=== PATIENT | female | born 2000 | race Two or more races ===

== ENCOUNTER 2024-01-21 09:23 | Observation (INO) | payer SELFPAY ==
[~2024-01-21] VITALS: Ht 154.9 cm; Wt 60.0 kg
[2024-01-21 09:23] VITALS: BP 113/73; PULSE 103; RESP 16; O2SAT 98
[2024-01-21 11:20] LABS: Urine Bacteria FEW /hpf (None Seen); Urine Blood Negative /uL (Negative); Urine Clarity Turbid (Clear); Urine Color Colorless (Yellow); Urine Mucus FEW (None Seen); Urine Protein, UAD Negative (Negative); Urine Specific Gravity 1.019 (1.001-1.035); Urine Urobilinogen Normal (Negative); Urine WBC 127 /hpf (0 - 5); Urine pH 5.5 (5.0-9.0)
[2024-01-21] MEDS ORDERED: PREN-96 PO (11:59)
[2024-01-21] MEDS: ceFAZolin 2 GM/D5W50ml 50 ML IV ONE (12:00)
[2024-01-21] MEDS: LACTATED RINGER'S 1,000 ML IV ONE (12:01)
[2024-01-21] MEDS ORDERED: NITR-87 PO (12:23)
== END 2024-01-21 12:52 | disposition home or self-care (01) ==
LOC: ER 09:23 → UNDOADMOB 10:00 → LDRP 10:00 → UNDODISOB 12:52
PROVIDERS: ADMIT Obstetrics & Gynecology; ATTEND Obstetrics & Gynecology
DX: O23.42 Unspecified infection of urinary tract in pregnancy, second trimester (principal); O99.891 Other specified diseases and conditions complicating pregnancy; M54.50 Low back pain, unspecified; Z3A.21 21 weeks gestation of pregnancy
CPT/HCPCS: 59025; 76815; 81001; 81002; 87086; 94760; 94762; 96361; 96365; G0378; J0690; 96360

== ENCOUNTER 2024-05-28 22:20 | Inpatient (IN) | payer MEDICAID, OTHER ==
[~2024-05-28] VITALS: Ht 154.9 cm; Wt 74.8 kg
[~2024-05-28 22:20] MED LIST: NITR-87 PO; PREN-96 PO
[2024-05-29 00:03] LABS: Fern Testing Negative
[2024-05-29] MEDS ORDERED: NALBUPHINE HCL 10 MG/1ml INJECTION IV PRN (00:45)
[2024-05-29] MEDS ORDERED: LIDOCAINE 2%HCL (LOCAL ANESTH.) INJ 20ML MDV IJ PRN (00:45)
[2024-05-29] MEDS: PHISODERM TOP SOLN 240ML BTL TOP PRN (01:31)
[2024-05-29] MEDS: WITCH HAZEL-GLYCERIN PAD TOP PRN (01:31)
[2024-05-29] MEDS: DERMOPLAST 60ML BOTTLE TOP PRN (01:31)
[2024-05-29] MEDS: LACTATED RINGER'S 1,000 ML IV SCH (01:32)
[2024-05-29 01:42] LABS: Basophils # (auto) 0.1 10 ^3/uL (0-0.2); Basophils % (auto) 0.7 % (0.0-2.0); Eosinophils # (auto) 0.1 10 ^3/uL (0-0.8); Eosinophils % (auto) 0.7 % (0.0-7.0); Hematocrit 39.7 % (36.0-46.0); Hemoglobin 13.3 g/dL (12.2-16.2); Lymphocytes # (auto) 4.1 10 ^3/uL (0.4-5.4); Lymphocytes % (auto) 26.8 % (10.0-50.0); Mean Corpuscular Hemoglobin 28.6 pg (28.0-32.0); Mean Corpuscular Hgb Conc. 33.5 g/dL (32.0-36.0); Mean Corpuscular Volume 85.2 fL (80.0-100.0); Monocytes # (auto) 0.8 10 ^3/uL (0-1.3); Monocytes % (auto) 5.5 % (0.0-12.0); Neutrophils # (auto) 10.1 10 ^3/uL (1.6-8.6); Neutrophils % (auto) 66.3 % (37.0-80.0); Nucleated Red Blood Cells % 0.1 %; Platelet Count (auto) 268 10^3/uL (140-450); Red Blood Cells 4.66 10^6/uL (4.0-5.20); Red Cell Distribution Width 13.2 % (11.8-14.3); White Blood Cell 15.2 10^3/uL (4.4-10.8)
[2024-05-29 01:59] LABS: INR 0.88 (0.9-1.15); Partial Thromboplastin Time 24.7 SEC (24.5-34.5); Prothrombin Time 9.4 sec (9.3-11.8)
[2024-05-29 02:03] LABS: Albumin 3.9 g/dL (3.2-4.8); Anion Gap 11 (5-15); BUN/Creatinine Ratio 13.2 (10.0-20.0); Blood Urea Nitrogen 10 mg/dL (9-23); Calcium 9.1 mg/dL (8.7-10.4); Carbon Dioxide 21 mmol/L (20-31); Chloride 105 mmol/L (98-107); Potassium 3.9 mmol/L (3.5-5.1); Sodium 137 mmol/L (136-145); Total Protein 6.8 g/dL (5.7-8.2)
[2024-05-29 02:04] LABS: Alanine Aminotransferase < 9 U/L (7-40); Alkaline Phosphatase 330 U/L (46-116); Bilirubin, Total 0.3 mg/dL (0.2-1.0); Glucose 73 mg/dL (74-106)
[2024-05-29 02:24] LABS: Aspartate Aminotransferase 13 U/L (13-40)
[2024-05-29 02:56] LABS: Urine Bacteria None Seen /hpf (None Seen)
[2024-05-29 03:10] LABS: Urine Blood Negative /uL (Negative); Urine Clarity Clear (Clear); Urine Color Yellow (Yellow); Urine Protein, UAD TRACE (Negative); Urine Squamous Epithelial Cell FEW /hpf (<5); Urine Urobilinogen Normal (Negative); Urine WBC 1 /hpf (0 - 5)
[2024-05-29 03:23] LABS: Amphetamine Screen, Urine Neg (NEGATIVE); Barbiturate Scree,Urine Neg (NEGATIVE); Benzodiazephine Screen, Urine Neg (NEGATIVE); Cannabinoid Screen, Urine Neg (NEGATIVE); Cocaine Screen, Urine Neg (NEGATIVE); Opiate Scree,Urine Neg (NEGATIVE); Phencyclidine Screen, Urine Neg (NEGATIVE)
--- NOTE | 2024-05-29 05:56 | DVH ---
LIMITED OB ULTRASOUND > 14 WKS: HISTORY: NO RECORDS TECHNIQUE: Multiple real-time grayscale images of the gravid uterus with duplex Doppler color flow an d M-mode spectral analysis. TRANSDUCER: Transabdominal COMPARISON: None FINDINGS: IUP single live fetus at 36 weeks and 5 days based on composite averages of the BPD, head circumferen ce, abdominal circumference and femur length Estimated weight 2889 grams heart rate 152 beats per minute YAMILKA 4.8 cm Cervix is not visualized Cephalic Presentation Grade 3, anterior Placenta without previa or abruption. IMPRESSION: IUP single live fetus at 36 weeks and 5 days AUA corresponding to an VIOLET of 06/21/2024. Single nuchal cord is present at this time.
[2024-05-29] MEDS ORDERED: TERBUTALINE SULFATE 1 MG/ML 1ML VIAL SC PRN (06:00)
--- NOTE | 2024-05-29 06:39 | DVHHP2 ---
OB CC & HPI Date Date of Admission: May 29, 2024 Patient Identification: : 1 Para: 0 EGA: 38.1 Chief Complaints: Reason for admission: rupture of membranes History of Present Complaints 23y G1Po IUP 38.1 admitted w/ PROM 05/28 at 1845 hr, clear fluid AmniSure + Denies contractions, or vaginal bleeding PNL care in [place], uncomplicated. GBS records received, negative. Past Medical History Cardiac: No pertinent Hx Pulmonary: No pertinent Hx Central Nervous System: No pertinent Hx GI: No pertinent Hx Hemotology/Oncology: No pertinent Hx Hepatobiliary: No pertinent Hx Psychiatric: No pertinent Hx Musculoskeletal: No pertinent Hx Rheumotologic: No pertinent Hx Infectious Disease: No peritnent Hx ENT: No pertinent Hx Renal/: No pertinent Hx Endocrine: No pertinent Hx Dermatology: No pertinent Hx Past Surgical History: No pertinent Hx OB History OB History Care: Good Care Ultrasounds: Normal mid trimester US Obstetrical Complications: None Medical Complications: None Allergies: Coded Allergies: NO KNOWN ALLERGIES (Unverified , 05/28/24) Current Medications Current Medications Medications (Trade) Dose Ordered Sig/Patrick Route PRN Reason Start Time Stop Time Status Last Admin Lactated Ringer's 1,000 ml @ 125 mls/hr Q8H IV 05/29/24 00:45 05/29/24 01:32 Nalbuphine HCl (Nubain) 10 mg Q4HP PRN IV MODERATE PAIN (4-6 PAIN SCALE) 05/29/24 00:45 Witch Radha (Tucks) 1 pad PRN PRN TOP PERINEAL AREA DISCOMFORT 05/29/24 00:45 05/29/24 01:31 Sodium Lauryl Sulfate (Phisoderm) 240 ml PRN PRN TOP PERINEAL AREA DISCOMFORT 05/29/24 00:45 05/29/24 01:31 Benzocaine (Dermoplast) 1 applic PRN PRN TOP PERINEAL AREA DISCOMFORT 05/29/24 00:45 05/29/24 01:31 Lidocaine HCl (Xylocaine) 40 ml ONCE PRN IJ PERINEAL AREA DISCOMFORT 05/29/24 00:45 Oxytocin 1,000 ml @ 6 ml/hr Q24H IV 05/29/24 06:00 Terbutaline Sulfate (Brethine Inj) 0.25 mg ONCE PRN SC Uterine tachysystole 05/29/24 06:00 Family & Social History Family/Social History Blood Type: O+ GBS Status: Negative Review of Systems Constitutional: No symptom reported Ears, Nose, & Throat: No symptom reported Eyes: No symptom reported Pulmonary/Respiratory: No symptom reported Cardiovascular: No symptom reported Gastrointestinal: No symptom reported Genitourinary: No symptom reported Musculoskeletal: No symptom reported Skin: No symptom reported Psychiatric: No symptom reported Endocrine: No symptom reported Hemotologic/Lymphatic: No symptom reported OB Admission Exam Physical Exam HEENT: NCAT Heart: Rhythm Normal Lungs: Clear Abdomen: Gravid Extremities: Normal Reflexes: Normal Cervical Dilatation: 1cm Effacement: 0% Station: -3 Membranes: Ruptured (by history and Amnisure positive) Amniotic Fluid: Clear Heart Rate: 130's Accelerations: Accelerations Present Decelerations: No Decelerations Short Term Variability: Present Alf Variability: Average (6-25) Contractions on Admission: 6-10 Minutes Apart Intensity: Mild OB Plan Plan Admitting Diagnosis: Term IUP 38.1 wk, PROM GBS neg Plan: Induction Induction Methd: Misoprostol protocol Other Plan: Epidural discussed, labor mgmt, anticipated Induction due to PROM R/B/A and consent for treatment obtained. KOTA VILLALBA DO May 29, 2024 06:39
[2024-05-29] MEDS: miSOPROStol 50 MCG per PRE-CUT 1/2 TAB PO PRN (07:38)
[2024-05-29] MEDS: LIDOCAINE HCL 2 %PF INJ 10ML AMP IJ ONE (12:45)
[2024-05-29] MEDS: ePHEDrine SULFATE 50 MG/ML AMP IV ONE (12:45)
[2024-05-29] MEDS: NALOXONE HCL 0.4 MG/ML VIAL IV ONE (12:45)
[2024-05-29] MEDS: ROPIVACAINE HCL 200 ML ONE (13:09)
--- NOTE | 2024-05-29 16:09 | DVHPN2 ---
OB Labor Progress Note Date and Time Seen Date Seen: May 29, 2024 Time Seen: 16:03 Subjective Patient reports: No new complaints, Feels better Subjective Comment s/p Epidural. RN reports 2cm dilated. s/p cytotec orally now in early / latent labor on her own SROM x > 18 hr Objective Vital Signs Afeb vs stable Monitoring Method Monitoring Method: External Heart Rate Heart Rate Baseline: 140 Heart Rate Variability: Moderate Presence of FHR Accelerations: Yes Presence of FHR Decelerations: Yes Heart Rate Type of Decel: Late Decelerations (Intermittent) Contractions Contractions Intensity: Moderate Membranes Membranes: Ruptured Amniotic Fluid Color: Clear Vaginal Exam Vag Exam Deferred: Yes Medications Medications - Pitocin: No Medication - Epidural: Yes Lab Results Lab Results Current Medications Medications (Trade) Dose Ordered Sig/Patrick Start Time Stop Time Status Last Admin Dose Admin Lactated Ringer's 1,000 ml @ 125 mls/hr Q8H 05/29/24 00:45 05/29/24 15:26 125 MLS/HR Nalbuphine HCl (Nubain) 10 mg Q4HP PRN 05/29/24 00:45 Witelie Radha (Tucks) 1 pad PRN PRN 05/29/24 00:45 05/29/24 01:31 1 PAD Sodium Lauryl Sulfate (Phisoderm) 240 ml PRN PRN 05/29/24 00:45 05/29/24 01:31 240 ML Benzocaine (Dermoplast) 1 applic PRN PRN 05/29/24 00:45 05/29/24 01:31 1 APPLIC Lidocaine HCl (Xylocaine) 40 ml ONCE PRN 05/29/24 00:45 05/29/24 12:56 DC Oxytocin 1,000 ml @ 6 ml/hr Q24H 05/29/24 06:00 Terbutaline Sulfate (Brethine Inj) 0.25 mg ONCE PRN 05/29/24 06:00 Oxytocin 500 ml @ 999 mls/hr Q31M ONCE 05/29/24 06:00 05/29/24 06:30 DC Oxytocin 500 ml @ 125 mls/hr Q4H ONCE 05/29/24 06:30 05/29/24 10:29 DC Misoprostol (Cytotec) 50 mcg Q4HPRN PRN 05/29/24 07:00 05/29/24 07:38 50 MCG Naloxone HCl (Narcan) 0.2 mg PRN ONCE 05/29/24 12:45 05/29/24 12:53 DC Ephedrine Sulfate (ePHEDrine SULFATE) 10 mg PRN ONCE 05/29/24 12:45 05/29/24 12:53 DC Lidocaine HCl (Xylocaine-Pf 2% Injection) 10 ml ONCE ONCE 05/29/24 12:45 05/29/24 12:53 DC Laboratory Tests Test 05/29/24 01:16 05/28/24 23:19 Range/Units White Blood Count 15.2 H 4.4-10.8 10^3/uL Red Blood Count 4.66 4.0-5.20 10^6/uL Hemoglobin 13.3 12.2-16.2 g/dL Hematocrit 39.7 36.0-46.0 % Mean Corpuscular Volume 85.2 80.0-100.0 fL Mean Corpuscular Hemoglobin 28.6 28.0-32.0 pg Mean Corpuscular Hemoglobin Concent 33.5 32.0-36.0 g/dL Red Cell Distribution Width 13.2 11.8-14.3 % Platelet Count 268 140-450 10^3/uL Mean Platelet Volume 10.7 6.9-10.8 fL Neutrophils (%) (Auto) 66.3 37.0-80.0 % Lymphocytes (%) (Auto) 26.8 10.0-50.0 % Monocytes (%) (Auto) 5.5 0.0-12.0 % Eosinophils (%) (Auto) 0.7 0.0-7.0 % Basophils (%) (Auto) 0.7 0.0-2.0 % Neutrophils # (Auto) 10.1 H 1.6-8.6 10 ^3/uL Lymphocytes # (Auto) 4.1 0.4-5.4 10 ^3/uL Monocytes # (Auto) 0.8 0-1.3 10 ^3/uL Eosinophils # (Auto) 0.1 0-0.8 10 ^3/uL Basophils # (Auto) 0.1 0-0.2 10 ^3/uL Nucleated Red Blood Cells 0.1 % Prothrombin Time 9.4 9.3-11.8 sec Prothrombin Time INR 0.88 L 0.9-1.15 Activated Partial Thromboplast Time 24.7 24.5-34.5 SEC Sodium Level 137 136-145 mmol/L Potassium Level 3.9 3.5-5.1 mmol/L Chloride Level 105 98-107 mmol/L Carbon Dioxide Level 21 20-31 mmol/L Anion Gap 11 5-15 Blood Urea Nitrogen 10 9-23 mg/dL Creatinine 0.76 0.550-1.02 mg/dL Glomerular Filtration Rate Calc 114 >90 mL/min BUN/Creatinine Ratio 13.2 10.0-20.0 Serum Glucose 73 L 74-106 mg/dL Calcium Level 9.1 8.7-10.4 mg/dL Total Bilirubin 0.3 0.2-1.0 mg/dL Aspartate Amino Transferase (AST) 13 13-40 U/L Alanine Aminotransferase (ALT) < 9 7-40 U/L Alkaline Phosphatase 330 H 46-116 U/L Total Protein 6.8 5.7-8.2 g/dL Albumin 3.9 3.2-4.8 g/dL Rapid Plasma Reagin Pending Treponema pallidum Ab (TP-PA) Pending Urine Color Yellow Yellow Urine Clarity Clear Clear Urine pH 6.0 5.0-9.0 Urine Specific [place] 1.020 1.001-1.035 Urine Protein Trace H Negative Urine Ketones Negative Negative Urine Blood Negative Negative /uL Urine Nitrite Negative Negative Urine Bilirubin Negative Negative Urine Urobilinogen Normal Negative mg/dL Urine Leukocyte Esterase Negative Negative /uL Urine RBC 1 0 - 4 /hpf Urine WBC 1 0 - 5 /hpf Urine Squamous Epithelial Cells Few <5 /hpf Urine Bacteria None seen None Seen /hpf Urine Glucose Normal Normal mg/dL Amniotic Fluid Ferning Test Negative Placental [id number]-Bgjkwydiphxal Positive Urine Opiates Screen Neg NEGATIVE Urine Fentanyl Screen Neg NEGATIVE Urine Barbiturates Screen Neg NEGATIVE Urine Phencyclidine Screen Neg NEGATIVE Urine Amphetamines Screen Neg NEGATIVE Urine Benzodiazepines Screen Neg NEGATIVE Urine Cocaine Screen Neg NEGATIVE Urine Cannabinoids Screen Neg NEGATIVE Assessment Assessment Term IUP , PROM Cat 2 FHR GBS neg Plan Plan Continue to observe Intrapartum Resuscitative measures as needed Will start PITOCIN augmentation once Cat 1 FHR x > 30 mins Start Ancef prophylaxis for Prolonged PROM. Plan discussed with: Patient, Other (RN) KOTA VILLALBA DO May 29, 2024 16:09
[2024-05-29] MEDS: LACT. RINGERS/OXYTOCIN 20UNITS 1,000 ML IV SCH (16:30)
[2024-05-29] MEDS: ceFAZolin 2 GM/D5W50ml 50 ML IV ONE (16:44)
--- NOTE | 2024-05-29 20:22 | DVHPN2 ---
OB Labor Progress Note Date and Time Seen Date Seen: May 29, 2024 Time Seen: 20:05 Subjective Patient reports: No new complaints Subjective Comment RN reports Category II FHR with late decelerations. Cervix not changed 2cm dilated Unable to use Pitocin due to intolerance to labor Objective Vital Signs AFeb VSS Monitoring Method Monitoring Method: Internal (IUPC only) Heart Rate Heart Rate Baseline: 140 Heart Rate Variability: Moderate Presence of FHR Accelerations: Yes Presence of FHR Decelerations: Yes Heart Rate Type of Decel: Late Decelerations (Intermittent) Contractions Contractions Intensity: Moderate Membranes Membranes: Ruptured Amniotic Fluid Color: Clear Vaginal Exam Vag Exam Deferred: No Vaginal Exam Dilation: 4 Vaginal Exam Effacement: 80 Vaginal Exam Station: -2 Vaginal Exam Presentation: VTX Vaginal Exam Show: None Medications Medications - Pitocin: No Medication - Epidural: Yes Lab Results Lab Results Current Medications Medications (Trade) Dose Ordered Sig/Patrick Start Time Stop Time Status Last Admin Dose Admin Lactated Ringer's 1,000 ml @ 125 mls/hr Q8H 05/29/24 00:45 05/29/24 21:49 125 MLS/HR Nalbuphine HCl (Nubain) 10 mg Q4HP PRN 05/29/24 00:45 Witch Radha (Tucks) 1 pad PRN PRN 05/29/24 00:45 05/29/24 01:31 1 PAD Sodium Lauryl Sulfate (Phisoderm) 240 ml PRN PRN 05/29/24 00:45 05/29/24 01:31 240 ML Benzocaine (Dermoplast) 1 applic PRN PRN 05/29/24 00:45 05/29/24 01:31 1 APPLIC Lidocaine HCl (Xylocaine) 40 ml ONCE PRN 05/29/24 00:45 05/29/24 12:56 DC Oxytocin 1,000 ml @ 6 ml/hr Q24H 05/29/24 06:00 05/29/24 16:30 6 ML/HR Terbutaline Sulfate (Brethine Inj) 0.25 mg ONCE PRN 05/29/24 06:00 Oxytocin 500 ml @ 999 mls/hr Q31M ONCE 05/29/24 06:00 05/29/24 06:30 DC Oxytocin 500 ml @ 125 mls/hr Q4H ONCE 05/29/24 06:30 05/29/24 10:29 DC Misoprostol (Cytotec) 50 mcg Q4HPRN PRN 05/29/24 07:00 05/29/24 07:38 50 MCG Naloxone HCl (Narcan) 0.2 mg PRN ONCE 05/29/24 12:45 05/29/24 12:53 DC Ephedrine Sulfate (ePHEDrine SULFATE) 10 mg PRN ONCE 05/29/24 12:45 05/29/24 12:53 DC Lidocaine HCl (Xylocaine-Pf 2% Injection) 10 ml ONCE ONCE 05/29/24 12:45 05/29/24 12:53 DC Cefazolin Sodium/ Dextrose 50 ml @ 50 mls/hr ONCE ONCE 05/29/24 16:15 05/29/24 17:14 DC 05/29/24 16:44 50 MLS/HR Cefazolin Sodium 50 ml @ 100 mls/hr Q8HR 05/30/24 02:00 Laboratory Tests Test 05/29/24 01:16 05/28/24 23:19 Range/Units White Blood Count 15.2 H 4.4-10.8 10^3/uL Red Blood Count 4.66 4.0-5.20 10^6/uL Hemoglobin 13.3 12.2-16.2 g/dL Hematocrit 39.7 36.0-46.0 % Mean Corpuscular Volume 85.2 80.0-100.0 fL Mean Corpuscular Hemoglobin 28.6 28.0-32.0 pg Mean Corpuscular Hemoglobin Concent 33.5 32.0-36.0 g/dL Red Cell Distribution Width 13.2 11.8-14.3 % Platelet Count 268 140-450 10^3/uL Mean Platelet Volume 10.7 6.9-10.8 fL Neutrophils (%) (Auto) 66.3 37.0-80.0 % Lymphocytes (%) (Auto) 26.8 10.0-50.0 % Monocytes (%) (Auto) 5.5 0.0-12.0 % Eosinophils (%) (Auto) 0.7 0.0-7.0 % Basophils (%) (Auto) 0.7 0.0-2.0 % Neutrophils # (Auto) 10.1 H 1.6-8.6 10 ^3/uL Lymphocytes # (Auto) 4.1 0.4-5.4 10 ^3/uL Monocytes # (Auto) 0.8 0-1.3 10 ^3/uL Eosinophils # (Auto) 0.1 0-0.8 10 ^3/uL Basophils # (Auto) 0.1 0-0.2 10 ^3/uL Nucleated Red Blood Cells 0.1 % Prothrombin Time 9.4 9.3-11.8 sec Prothrombin Time INR 0.88 L 0.9-1.15 Activated Partial Thromboplast Time 24.7 24.5-34.5 SEC Sodium Level 137 136-145 mmol/L Potassium Level 3.9 3.5-5.1 mmol/L Chloride Level 105 98-107 mmol/L Carbon Dioxide Level 21 20-31 mmol/L Anion Gap 11 5-15 Blood Urea Nitrogen 10 9-23 mg/dL Creatinine 0.76 0.550-1.02 mg/dL Glomerular Filtration Rate Calc 114 >90 mL/min BUN/Creatinine Ratio 13.2 10.0-20.0 Serum Glucose 73 L 74-106 mg/dL Calcium Level 9.1 8.7-10.4 mg/dL Total Bilirubin 0.3 0.2-1.0 mg/dL Aspartate Amino Transferase (AST) 13 13-40 U/L Alanine Aminotransferase (ALT) < 9 7-40 U/L Alkaline Phosphatase 330 H 46-116 U/L Total Protein 6.8 5.7-8.2 g/dL Albumin 3.9 3.2-4.8 g/dL Rapid Plasma Reagin Pending Treponema pallidum Ab (TP-PA) Pending Urine Color Yellow Yellow Urine Clarity Clear Clear Urine pH 6.0 5.0-9.0 Urine Specific [place] 1.020 1.001-1.035 Urine Protein Trace H Negative Urine Ketones Negative Negative Urine Blood Negative Negative /uL Urine Nitrite Negative Negative Urine Bilirubin Negative Negative Urine Urobilinogen Normal Negative mg/dL Urine Leukocyte Esterase Negative Negative /uL Urine RBC 1 0 - 4 /hpf Urine WBC 1 0 - 5 /hpf Urine Squamous Epithelial Cells Few <5 /hpf Urine Bacteria None seen None Seen /hpf Urine Glucose Normal Normal mg/dL Amniotic Fluid Ferning Test Negative Placental Pjysh-7-Ubnhlssrztfup Positive Urine Opiates Screen Neg NEGATIVE Urine Fentanyl Screen Neg NEGATIVE Urine Barbiturates Screen Neg NEGATIVE Urine Phencyclidine Screen Neg NEGATIVE Urine Amphetamines Screen Neg NEGATIVE Urine Benzodiazepines Screen Neg NEGATIVE Urine Cocaine Screen Neg NEGATIVE Urine Cannabinoids Screen Neg NEGATIVE Assessment Assessment Term IUP , PROM Induction of labor Categ 2 FHR, now resolved Plan Plan IUPC placed , labor now progressing to 4cm dilation FHR now Category 1 Continue current mgmt, indications for C/S discussed w/ patient in case of NRFHR pattern Plan discussed with: Patient, Other (RN) KOTA VILLALBA DO May 29, 2024 20:22
[2024-05-30] MEDS: ceFAZolin 1GM/50ML 50 ML IV SCH (00:46)
[2024-05-30] MEDS: SODIUM CHLORIDE 0.9% 300 ML IUPC ONE (01:33)
[2024-05-30] MEDS: ROPIVACAINE HCL 200 ML ONE (01:55)
[2024-05-30] MEDS: SODIUM CHLORIDE 0.9% 1,000 ML IUPC SCH (01:57)
[2024-05-30] MEDS ORDERED: ONDANSETRON HCL 4 MG/2 ML VIAL IV PRN (02:00)
[2024-05-30] MEDS: LACT. RINGERS/OXYTOCIN 20UNITS 500 ML IV ONE ×2 (07:29→07:30)
[2024-05-30] MEDS ORDERED: ONDANSETRON ODT 4 MG TAB PO PRN (07:30)
--- NOTE | 2024-05-30 07:40 | LDN2 ---
Labor and Delivery Note Date 05/30/24 Age 23 1 Para 1 EGA 38.2 Diagnosis Term , prolonged PROM Categ 2 FHR during labor Vaginal Delivery: VTX Vacuum Assisted: No Placenta: Spontaneous Sex: Male Weight Pending Apgars 7/9 Amniotic Fluid: Clear Anesthesia Epidural Episiotomy: No Repaired with B/L 1st deg labial lacerations repaired under local anesthesia 1% lidocaine x 10ml Repaired using 3-0 Chromic EBL 50 mL Labs Blood Bank 05/29/24 01:16: Blood Type O POSITIVE Complications NOne Comments/Significant Med Bud Placenta to pathology due to Prolonged ROM product delivery specialist, en route to hospital for delivery. Baby delivered 2 mins I was called in for delivery. KOTA VILLALBA DO May 30, 2024 07:40
[2024-05-30] MEDS: IBUPROFEN 600 MG TAB PO PRN (08:20)
[2024-05-30 11:00] VITALS: BP 138/80; PULSE 89; RESP 20; TEMP 98.4; O2SAT 96
[2024-05-30] MEDS: ACETAMINOPHEN 325 MG TAB PO PRN (11:18)
[2024-05-30 15:00] VITALS: BP 126/70; PULSE 76; RESP 20; TEMP 97.7; O2SAT 97
[2024-05-30 19:30] VITALS: BP 119/70; PULSE 71; RESP 16; TEMP 98; O2SAT 97
[2024-05-30 23:00] VITALS: BP 118/80; PULSE 87; RESP 14; TEMP 97.9; O2SAT 95
[2024-05-31 03:04] VITALS: BP 102/63; PULSE 75; RESP 14; TEMP 97.9; O2SAT 97
--- NOTE | 2024-05-31 07:17 | DVHDS2 ---
Discharge Summary Date of Admission May 29, 2024 at 00:28 Date of Discharge: May 31, 2024 Admitting Diagnosis Term , delivered PROM Labs/Diagnostic Data: Laboratory Results Test 05/29/24 01:16 05/28/24 23:19 White Blood Count 15.2 10^3/uL (4.4-10.8) Red Blood Count 4.66 10^6/uL (4.0-5.20) Hemoglobin 13.3 g/dL (12.2-16.2) Hematocrit 39.7 % (36.0-46.0) Mean Corpuscular Volume 85.2 fL (80.0-100.0) Mean Corpuscular Hemoglobin 28.6 pg (28.0-32.0) Mean Corpuscular Hemoglobin Concent 33.5 g/dL (32.0-36.0) Red Cell Distribution Width 13.2 % (11.8-14.3) Platelet Count 268 10^3/uL (140-450) Mean Platelet Volume 10.7 fL (6.9-10.8) Neutrophils (%) (Auto) 66.3 % (37.0-80.0) Lymphocytes (%) (Auto) 26.8 % (10.0-50.0) Monocytes (%) (Auto) 5.5 % (0.0-12.0) Eosinophils (%) (Auto) 0.7 % (0.0-7.0) Basophils (%) (Auto) 0.7 % (0.0-2.0) Neutrophils # (Auto) 10.1 10 ^3/uL (1.6-8.6) Lymphocytes # (Auto) 4.1 10 ^3/uL (0.4-5.4) Monocytes # (Auto) 0.8 10 ^3/uL (0-1.3) Eosinophils # (Auto) 0.1 10 ^3/uL (0-0.8) Basophils # (Auto) 0.1 10 ^3/uL (0-0.2) Nucleated Red Blood Cells 0.1 % Prothrombin Time 9.4 sec (9.3-11.8) Prothrombin Time INR 0.88 (0.9-1.15) Activated Partial Thromboplast Time 24.7 SEC (24.5-34.5) Sodium Level 137 mmol/L (136-145) Potassium Level 3.9 mmol/L (3.5-5.1) Chloride Level 105 mmol/L (98-107) Carbon Dioxide Level 21 mmol/L (20-31) Anion Gap 11 (5-15) Blood Urea Nitrogen 10 mg/dL (9-23) Creatinine 0.76 mg/dL (0.550-1.02) Glomerular Filtration Rate Calc 114 mL/min (>90) BUN/Creatinine Ratio 13.2 (10.0-20.0) Serum Glucose 73 mg/dL (74-106) Calcium Level 9.1 mg/dL (8.7-10.4) Total Bilirubin 0.3 mg/dL (0.2-1.0) Aspartate Amino Transferase (AST) 13 U/L (13-40) Alanine Aminotransferase (ALT) < 9 U/L (7-40) Alkaline Phosphatase 330 U/L (46-116) Total Protein 6.8 g/dL (5.7-8.2) Albumin 3.9 g/dL (3.2-4.8) Urine Color Yellow (Yellow) Urine Clarity Clear (Clear) Urine pH 6.0 (5.0-9.0) Urine Specific [place] 1.020 (1.001-1.035) Urine Protein Trace (Negative) Urine Ketones Negative (Negative) Urine Blood Negative /uL (Negative) Urine Nitrite Negative (Negative) Urine Bilirubin Negative (Negative) Urine Urobilinogen Normal mg/dL (Negative) Urine Leukocyte Esterase Negative /uL (Negative) Urine RBC 1 /hpf (0 - 4) Urine WBC 1 /hpf (0 - 5) Urine Squamous Epithelial Cells Few /hpf (<5) Urine Bacteria None seen /hpf (None Seen) Urine Glucose Normal mg/dL (Normal) Amniotic Fluid Ferning Test Negative Placental Jgaay-2-Zsgpvghbxctrx Positive Urine Opiates Screen Neg (NEGATIVE) Urine Fentanyl Screen Neg (NEGATIVE) Urine Barbiturates Screen Neg (NEGATIVE) Urine Phencyclidine Screen Neg (NEGATIVE) Urine Amphetamines Screen Neg (NEGATIVE) Urine Benzodiazepines Screen Neg (NEGATIVE) Urine Cocaine Screen Neg (NEGATIVE) Urine Cannabinoids Screen Neg (NEGATIVE) Other Laboratory Tests 05/29/24 01:16 Brief Hx & Hospital Course: Admitted for labor and delivery Prolonged ROM, FHR Category II during labor at times, but resolved Normal vaginal delivery, uncomplicated. Normal course Afebrile VS stable Feels well Operations or Procedures Induction of labor Repair 1st deg bilateral labial lacerations Condition at Discharge: Stable Final Diagnosis/Problems List Term , delivered Secondary Diagnosis: Premature rupture of membranes Discharge Disposition: Home Discharge Instruct/Medications Diet: Regular Activity: Light activity Activity comment: Pelvic rest x 6 weeks Follow Up/Referral: F/U with primary OB in 2 wk Medications: Ibuprofen PRN Discharge Statement: "Patient was advised to return to the ER or call 911 if any headaches, dizziness, shortness of breath, chest pain, abdominal pain, bleeding, fevers, or worsening of medical condition. Patient was counseled about treatment plan, medications, possible side effects, patientverbalized understanding. All questions were answered to the best of my ability. This discharge took greater then 30 minutes in planning, reviewing documentation, counseling the patient, and discussing with other team members." ASSESSMENT ASSESSMENT Assessment KOTA VILLALBA DO May 31, 2024 07:17
--- NOTE | 2024-05-31 07:19 | DVHPN2 ---
Progress Note Date Seen: May 31, 2024 Subjective PPD#1 s/p NO complaints. Doing well. Lochia mild. no pain vital signs Vital Sign Date Time Temp Pulse Resp B/P (MAP) Pulse Ox O2 Delivery O2 Flow Rate FiO2 05/31/24 03:04 97.9 75 14 102/63 (76) 97 97.9 05/30/24 19:00 Room Air Total Intake and Output 05/30/24 05/30/24 05/31/24 15:00 23:00 07:00 Intake Total 800 ml Output Total 750 ml 1310 ml 260 ml Balance -750 ml -510 ml -260 ml medications Current Medications Medications Dose Ordered Sig/Patrick Route Start Time Stop Time Status Last Admin Dose Admin Nalbuphine HCl 10 mg Q4HP PRN IV 05/29/24 00:45 Cancel Witch Radha 1 pad PRN PRN TOP 05/29/24 00:45 05/29/24 01:31 1 PAD Sodium Lauryl Sulfate 240 ml PRN PRN TOP 05/29/24 00:45 05/29/24 01:31 240 ML Benzocaine 1 applic PRN PRN TOP 05/29/24 00:45 05/29/24 01:31 1 APPLIC Terbutaline Sulfate 0.25 mg ONCE PRN SC 05/29/24 06:00 Cancel Ondansetron HCl 4 mg Q6HPRN PRN IV 05/30/24 02:00 Cancel Ibuprofen 600 mg Q6HP PRN PO 05/30/24 07:30 05/30/24 21:30 600 MG Acetaminophen 650 mg Q4HP PRN PO 05/30/24 07:30 05/31/24 02:01 650 MG Ondansetron HCl 4 mg Q4HPRN PRN PO 05/30/24 07:30 laboratory and microbiology Laboratory Tests 05/29/24 01:16 Test 05/29/24 01:16 Range/Units Serum Glucose 73 L 74-106 mg/dL Objective O: AFVSS Chest: heart and lung sounds normal. Abd soft, non-tender, fundus firm, BS, no rebound or guarding, Ext Neg Homans, Non-tender, edema Lochia - minimal Labs Reviewed Assessment/Plan 23y s/p PPD#1, doing well Plan D/C planning Plan discussed with: Patient, Other (RN) KOTA VILLALBA DO May 31, 2024 07:19
[2024-05-31] MEDS ORDERED: IBU600T PO (07:20)
[2024-05-31 07:30] VITALS: BP 125/80; PULSE 63; RESP 18; TEMP 98.1; O2SAT 97
[2024-05-31 11:00] VITALS: BP 123/79; PULSE 66; RESP 18; TEMP 97.9; O2SAT 97
[2024-06-01 07:06] LABS: RPR Non Reactive (Non Reactive)
[2024-06-01 10:55] LABS: Treponema Pallidum Ab LC Non Reactive (Non Reactive)
== END 2024-05-31 13:41 | disposition home or self-care (01) | DRG 560 ==
LOC: UNDOADMOB 22:20 → LDRP 22:20 → INTOOBSV 05-29 00:28 → LDRP 05-29 00:28 → EDUNIT# 05-29 00:28 → OBSVTOIN 05-29 00:28 → LDRP 05-30 10:48
PROVIDERS: ADMIT Obstetrics & Gynecology; ATTEND Obstetrics & Gynecology
PROC: 10E0XZZ Delivery of Products of Conception, External Approach (ICD-10-PCS; principal; 2024-05-31)
PROC: 0HQ9XZZ Repair Perineum Skin, External Approach (ICD-10-PCS; 2024-05-31)
PROC: 3E0DXGC Introduction of Other Therapeutic Substance into Mouth and Pharynx, External Approach (ICD-10-PCS; 2024-05-31)
PROC: 3E0R3BZ Introduction of Anesthetic Agent into Spinal Canal, Percutaneous Approach (ICD-10-PCS; 2024-05-31)
PROC: 00HU33Z Insertion of Infusion Device into Spinal Canal, Percutaneous Approach (ICD-10-PCS; 2024-05-31)
DX: O42.92 Full-term premature rupture of membranes, unspecified as to length of time between rupture and onset of labor (principal); Z37.0 Single live birth; O70.0 First degree perineal laceration during delivery; Z3A.38 38 weeks gestation of pregnancy
CPT/HCPCS: 36415; 59025; 59409; 62282; 76805; 80053; 80307; 81001; 81002; 84112; 85025; 85610; 85730; 86592; 86780; 86850; 86900; 86901; 94760; 94762; 96360; 96361; 96365; 96366; G0378; J2590